=== PATIENT | male | born 1945 | race Caucasian/White ===

== ENCOUNTER 2023-09-23 17:10 | Emergency (ER) | payer OTHER, SELFPAY ==
[2023-09-23 17:21] VITALS: BP 143/95
[2023-09-23 19:32] VITALS: BP 154/100
[2023-09-23 19:36] LABS: % Basophils 0.7 % (0-2); % Eosinophils 5.8 % (0-6); % Immature Granulocytes 0.3 % (0-0.5); % Monocytes 8.2 % (1.7-9.3); Absolute Basophils 0.1 10^3/uL (0-0.2); Absolute Eosinophils 0.4 10^3/uL (0-0.7); Absolute Lymphocytes 1.6 10^3/uL (1.2-3.4); Absolute Monocytes 0.6 10^3/uL (0.1-0.6); Absolute Neutrophils 4.1 10^3/uL (1.4-6.5); Hematocrit 40.9 % (39.0-52.0); Hemoglobin 14.6 g/dL (13.0-18.0); Mean Corp Hgb Conc. 35.7 g/dL (33.0-37.0); Mean Corpuscular Hgb 31.4 pg (27.0-31.0); Mean Platelet Volume 8.6 fL (7.4-10.4); Nucleated Red Blood Cells % 0 % (-); Platelet Count 198 10^3/uL (130-400); Red Blood Cell Count 4.65 10^6/uL (4.70-6.10); Red Cell Dist. Width 12.9 % (11.5-14.5); White Blood Cell Count 6.7 10^3/uL (4.8-10.8)
[2023-09-23 19:49] LABS: ALT (SGPT) 22 U/L (0-50); AST (SGOT) 25 U/L (17-59); Albumin 3.9 g/dl (3.5-5.0); Alkaline Phosphatase 65 U/L (38-126); Blood Urea Nitrogen 19 mg/dl (9-20); Calcium 8.9 mg/dl (8.4-10.2); Carbon Dioxide 25 mmol/L (22-30); Chloride 107 mmol/L (98-107); Glucose 94 mg/dl (70-99); Potassium 4.2 mmol/L (3.5-5.1); Sodium 136 mmol/L (135-145); Total Bilirubin 0.6 mg/dl (0.2-1.3); Total Protein 6.2 g/dl (6.3-8.2); eGFR > 60.00
[2023-09-23 20:20] LABS: TSH Reflex To Free T4 1.54 uIU/ml (0.47-4.68)
--- NOTE | 2023-09-23 21:38 | ED.GENMED ---
History of Present Illness
General
Chief Complaint: Heart Rate Problem
Source: patient
Exam Limitations: none
Time Seen by Provider: 09/23/23 19:08
Nursing documentation reviewed up to this point in time: agreed with
Travel History
Have you had any contact with someone who has COVID-19?: No
Do you have any symptoms of coronavirus? Fever > 100 degrees, chills, cough, shortness of breath, sore throat, loss of taste or smell, muscle aches, or headache?: No
History of Present Illness
History of Present Illness:
77-year-old male with no significant chronic medical issues who presents to the emergency room with his for evaluation of palpitations. Patient reports that he woke up this morning with significant palpitations and he says they were consistent
essentially the entire day. He says that his heart rate was elevated between 140 and 160 for much of the day and that his pulse felt very irregular. He has seen Dr. Harris in the past for similar episode and had reassuring workup about 2 years ago
he says; he says he called the office was advised to come the emergency room. Upon arrival in the emergency room he says his symptoms have resolved and he is now comfortable without any complaints. Denies any chest pain. He denies any shortness
of breath. He denies any syncope associated with these episodes or significant dizziness. He denies any other complaints. He denies any known cardiac history.
Review of Systems
Review of Systems
All Other Systems: ROS reviewed and negative except as documented in HPI and ROS
Constitutional: Denies fever or chills
Respiratory: Denies cough or trouble breathing
Cardiac: Reports palpitations; Denies chest pain, diaphoresis or syncope
ABD/GI: Denies abdominal pain, nausea or vomiting
: Denies flank pain
Musculoskeletal: Denies neck pain or back pain
Neurological: Denies dizzy, headache, weakness or numbness
Phy Exam
Physical Exam
Physical Exam:
General: Awake, alert, oriented x3; no acute distress
Head: Normocephalic, atraumatic
Eyes: Conjunctiva normal
Throat: Airway intact, handling secretions
Neck: Trachea midline, supple without meningismus
Lungs: Clear to auscultation bilaterally, no wheezing, rales, rhonchi
Heart: Regular rate and rhythm, no murmurs, gallops, or rubs
Abd: Soft, non distended, nontender
Neuro: No gross deficits
Skin: no rash
Extremities: No edema in extremities, equal pulses in all extremities
Scores
Heart Failure Risk
Heart Failure Risk Score: Not Applicable
Heart Score for Chest Pain Patients
STEMI patient?: Not applicable
Withdrawal Assessment of Alcohol
Withdrawal Assessment Completed?: Not applicable
Course
Orders/Labs/Results
Orders:
Orders
09/23/23 17:13
Electrocardiogram (*1) Urgent
Reason for Study: Palpitations
EKG- Treatment ONCE
09/23/23 19:32
Complete Blood Count/With Diff Urgent
Comprehensive Metabolic Panel Urgent
TSH Reflex To Free T4 Urgent
09/23/23 20:43
Add On- LAB Urgent
Tests Added?: troponin
09/23/23 20:51
Troponin I Urgent
Abnormal Lab Results
09/23/23
19:32
RBC 4.65 L 10^6/uL
(4.70-6.10)
MCH 31.4 H pg
(27.0-31.0)
Total Protein 6.2 L g/dl
(6.3-8.2)
09/23/23 19:32
09/23/23 19:32
Vital Signs
Initial and Last Documented VS:
Initial Vital Signs
Temp Pulse Resp BP Pulse Ox
36.6 C 85 16 143/95 98
09/23/23 17:21 09/23/23 17:21 09/23/23 17:21 09/23/23 17:21 09/23/23 17:21
Last Documented Vital Signs
Temp Pulse Resp BP Pulse Ox
36.6 C 73 19 154/100 98
09/23/23 17:21 09/23/23 21:00 09/23/23 21:00 09/23/23 19:32 09/23/23 21:00
MDM/Problems Addressed
Differential Diagnosis Includes:
Dysrhythmia including atrial fibrillation, atrial flutter, SVT; hyperthyroidism; anxiety
MDM/Problems Addressed:
77-year-old male presents for evaluation of palpitations and tachycardia throughout the day today. Symptoms have resolved in the emergency room. He has no complaints at present. Vital signs significant for hypertension but otherwise normal
including heart rate in the 80s. Physical exam as above. EKG shows a normal sinus rhythm with no concerning changes; no Brugada, no delta wave, normal QTc. Plan to place an IV check basic labs. Check thyroid studies. Reassess after the above.
Labs reviewed and CBC and CMP are unremarkable. Thyroid studies normal. Troponin was negative send in triage�patient denied chest pain. 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 Patient feels very comfortable with this plan and in fact prefers discharge. We spoke about return precautions in detail (including returning immediately for EKG should he notice tachycardia again) and all questions were answered.
*Pulse Oximetry
Patient hypoxic: no
*EKG
Interpreted by ED Provider?: Yes
Heart Rate: 80
Rate: normal
Rhythm: sinus
Chariton: normal axis
Interval: normal interval
QRS Pattern: normal QRS
Ischemia: no ischemia
*Critical Care Note
Total Time (30-74mins, 75-104mins- exclusive of procedures): Not Applicable
Data Reviewed
Review of Other/Old Records Reveals: Labs and Records
Source: patient and spouse
Patient Management
Discussion with other providers: Varnisher (Discussed with cardiology)
Escalation/DeEscalation of care consider admission/obs:
Consider observation on telemetry overnight but after discussion with patient and cardiology, using shared decision-making with patient plan for discharge with strong outpatient follow-up plan in place
ED Attending Note
-
Portions of this chart may have been created with voice recognition software.� Occasional wrong word or��sound alike� substitutions may have occurred due to the inherent limitations of voice recognition software.
Discharge Plan
Departure
Patient Disposition: Home (Routine Discharge)
Date of Disposition: 09/23/23
Time of Disposition: 21:30
Patient with high blood pressure during this ER visit?: Yes
Discharge Problem:
Heart palpitations, Tachycardia
Instructions: Palpitations (DC)
Prescriptions:
No Action
ibuprofen [Advil] 200 MG tablet
200 mg PO DAILY
Unknown Prostate Med
DAILY
Patient Comments:
unknown name of med or dose
Referrals:
Karlene Clark MD [Family Provider] -
Bart Harris, [Active] - Call in 1-3 days for appt
Activity Restrictions/Additional Instructions:
Thank you for visiting the Emergency Department at [facility].
1. Please schedule a follow up appointment as directed. Call first thing tomorrow morning to make an appointment.
2. If indicated, please take your medications as instructed and indicated on discharge paperwork.
3. If any of your symptoms do not improve, or persist, or become more severe within 6-12 hours, please return to the emergency department for further care.
4. Please return to the emergency department if you develop a headache, neck pain/stiffness, fever greater than 100.4F, chest pain, shortness of breath, persistent nausea, vomiting, slurred speech, difficulty walking, numbness/tingling, weakness,
signs of infection or any other symptoms that are worrisome to you.
Please call [phone] if you have any questions.
Interventions
Interventions:
*Risk Screen - Suicide Last Done: 09/23/23 20:05
*General Assessment Last Done: 09/23/23 21:38
*Neglect/Abuse Screening Last Done: 09/23/23 20:05
ED- Fall Risk Assessment Last Done: 09/23/23 19:46
*ED COVID-19 Vaccine History Last Done: 09/23/23 17:21
*Nursing Disposition Last Done: 09/23/23 21:38
ED- Cardiac Assessment Last Done: 09/23/23 19:46
ED- Pulmonary Assessment Last Done: 09/23/23 19:46
Discharge Date and Time
Print Language: SINHALA
== END 2023-09-23 21:40 | disposition home or self-care (01) ==
LOC: EMR 17:10
PROVIDERS: EMERGENCY PHYSICIAN Emergency Medicine; FAMILY PHYSICIAN Internal Medicine
DX: R00.2 Palpitations (principal); R00.0 Tachycardia, unspecified; I10 Essential (primary) hypertension
CPT/HCPCS: 99284; 80053; 84443; 84484; 85025; 93005

== ENCOUNTER 2023-11-10 22:13 | Emergency (ER) | payer OTHER, SELFPAY ==
[2023-11-10 22:16] VITALS: BP 155/111
--- NOTE | 2023-11-10 22:24 | ED.GENMED ---
History of Present Illness
General
Chief Complaint: Heart Rate Problem
Source: patient
Exam Limitations: none
Time Seen by Provider: 11/10/23 22:23
Nursing documentation reviewed up to this point in time: agreed with
Travel History
Have you had any contact with someone who has COVID-19?: No
Do you have any symptoms of coronavirus? Fever > 100 degrees, chills, cough, shortness of breath, sore throat, loss of taste or smell, muscle aches, or headache?: No
History of Present Illness
History of Present Illness:
Pleasant 77-year-old male with a known history of atrial fibrillation on Eliquis presents with palpitations this evening. Patient states that at 920 he felt palpitations and thought he was in A-fib. He used his Kardia device 4 times since having
the feeling and came into the emergency department. Patient sees Dr. Harris and had an appointment 10 days ago. He was started on metoprolol but had to reduce the dose due to unforeseen complications. Patient is on Eliquis and has not missed a
dose. Patient denies any chest pain or shortness of breath.
Review of Systems
Review of Systems
Allergies reviewed?: Yes
Other source history: family
All Other Systems: ROS reviewed and negative except as documented in HPI and ROS
Constitutional: Reports no symptoms
EENT: Reports no symptoms
Respiratory: Reports no symptoms
Cardiac: Reports palpitations; Denies chest pain, diaphoresis or syncope
ABD/GI: Reports no symptoms
: Reports no symptoms
Musculoskeletal: Reports no symptoms
Skin: Reports no symptoms
Neurological: Reports no symptoms
Endocrine: Reports no symptoms
Hematologic/Lymphatic: Reports no symptoms
Psychiatric: Reports no symptoms
Phy Exam
General Physical Exam
General Presentation: well appearing and no apparent distress
General Skin: warm and dry
General Habitus: normal
General Mental: alert
General Hydration: appears well hydrated
ENT Exam
ENT Exam: EOMI, pharynx normal, neck supple and normocephalic
Eye Exam
Eye Exam: PERRL, cornea clear and conjunctiva normal
Cardiovascular Exam
Cardiovascular Exam: regular rate/rhythm, no edema, no murmur and normal peripheral pulses
Pulmonary Exam
Pulmonary Exam: lungs clear, no respiratory distress, no rales, no crackles, no rhonchi, no stridor, no wheezing and no cough
Gastrointestinal Exam
Gastrointestinal Exam: normal bowel sounds, non tender, soft, no organomegaly, no pulsatile mass and non distended
Neurological Exam
Neurological Exam: alert, oriented x3, no motor deficits and speech normal
Musculoskeletal Exam
Musculoskeletal Exam: full ROM and no edema
Skin Exam
Skin Exam: normal color, warm/dry, no rash and no petechia
Psychiatric Exam
Psychiatric Exam: normal mood/affect
Course
Orders/Labs/Results
Orders:
Orders
11/10/23 22:14
Electrocardiogram (*1) Urgent
Reason for Study: Bradycardia / Tachycardia
EKG- Treatment ONCE
11/10/23 22:33
Cardiac Monitoring- Treatment ONCE
11/10/23 22:35
Complete Blood Count/With Diff Urgent
Comprehensive Metabolic Panel Urgent
Magnesium Urgent
PTT Urgent
Prothrombin Time Urgent
Troponin I Urgent
Abnormal Lab Results
11/10/23
22:35
RBC 4.57 L 10^6/uL
(4.70-6.10)
MCH 31.5 H pg
(27.0-31.0)
BUN 23 H mg/dl
(9-20)
Glucose 100 H mg/dl
(70-99)
11/10/23 22:35
11/10/23 22:35
Vital Signs
Initial and Last Documented VS:
Initial Vital Signs
Temp Pulse Resp BP Pulse Ox
97.8 F 88 24 155/111 98
11/10/23 22:16 11/10/23 22:16 11/10/23 22:16 11/10/23 22:16 11/10/23 22:16
Last Documented Vital Signs
Temp Pulse Resp BP Pulse Ox
97.8 F 86 17 139/87 93
11/10/23 22:16 11/10/23 23:30 11/10/23 23:30 11/10/23 23:00 11/10/23 23:30
*Critical Care Note
Total Time (30-74mins, 75-104mins- exclusive of procedures): Not Applicable
Update Note
Update Note:
Patient has meeting with Dr. Harris and Dr. Leonard scheduled in the near future to discuss an ablation.
ED Attending Note
-
Portions of this chart may have been created with voice recognition software.� Occasional wrong word or��sound alike� substitutions may have occurred due to the inherent limitations of voice recognition software.
Discharge Plan
Departure
Patient Disposition: Home (Routine Discharge)
Date of Disposition: 11/10/23
Time of Disposition: 23:33
Patient with high blood pressure during this ER visit?: Yes
Condition: Good
Discharge Problem:
Palpitations
Instructions: Palpitations (DC), BLOOD PRESSURE
Prescriptions:
No Action
ibuprofen [Advil] 200 MG tablet
200 mg PO DAILY
Unknown Prostate Med
DAILY
Patient Comments:
unknown name of med or dose
Referrals:
Karlene Clark MD [Family Provider] -
Bart Harirs DO [Active] - Keep scheduled appt
Activity Restrictions/Additional Instructions:
It was a pleasure meeting you and taking part in your care. We hope for your continued healing and wellness.
Please read discharge instructions in their entirety. However, they are for general education and may not describe your exact diagnosis at discharge. Information on your ER visit and medical conditions were discussed with you along with appropriate
follow up information...
If indicated, please take your medications as instructed and indicated on discharge paperwork.
Please schedule a follow up appointment as directed. Call to schedule an appointment
Please return to the emergency department with ANY change in, persisting, or worsening of symptoms. If any of your symptoms do not improve, or persist, or become more severe within 6-12 hours, please return to the emergency department for further
care.
Please return to the emergency department if you develop a headache, neck pain/stiffness, fever greater than 100.4F, chest pain, shortness of breath, persistent nausea, vomiting, slurred speech, difficulty walking, numbness/tingling, weakness, signs
of infection or any other symptoms that are worrisome to you.
If you have any questions or concerns please do not hesitate to call the Hospital at or E-mail me directly at [email or web address]
Interventions
Interventions:
*Risk Screen - Suicide Last Done: 11/10/23 22:16
*General Assessment Last Done: 11/10/23 22:25
*Neglect/Abuse Screening Last Done: 11/10/23 22:16
ED- Fall Risk Assessment Last Done: 11/10/23 22:29
*ED COVID-19 Vaccine History Last Done: 11/10/23 22:25
*Nursing Disposition Last Done: 11/10/23 23:45
ED- Cardiac Assessment Last Done: 11/10/23 23:45
ED- Pulmonary Assessment Last Done: 11/10/23 23:35
Discharge Date and Time
Print Language: GEORGIAN
[2023-11-10 22:25] VITALS: BMI 31.8
[2023-11-10 22:40] LABS: % Basophils 0.8 % (0-2); % Eosinophils 5.9 % (0-6); % Immature Granulocytes 0.4 % (0-0.5); % Lymphocytes 24.3 % (20.5-51.1); % Monocytes 8.6 % (1.7-9.3); Absolute Basophils 0.1 10^3/uL (0-0.2); Absolute Eosinophils 0.4 10^3/uL (0-0.7); Absolute Lymphocytes 1.8 10^3/uL (1.2-3.4); Absolute Monocytes 0.6 10^3/uL (0.1-0.6); Absolute Neutrophils 4.4 10^3/uL (1.4-6.5); Hematocrit 39.5 % (39.0-52.0); Hemoglobin 14.4 g/dL (13.0-18.0); Mean Corp Hgb Conc. 36.5 g/dL (33.0-37.0); Mean Corpuscular Hgb 31.5 pg (27.0-31.0); Mean Corpuscular Volume 86.4 fL (80.0-94.0); Mean Platelet Volume 8.5 fL (7.4-10.4); Nucleated Red Blood Cells % 0 % (-); Platelet Count 200 10^3/uL (130-400); Red Blood Cell Count 4.57 10^6/uL (4.70-6.10); Red Cell Dist. Width 12.7 % (11.5-14.5); White Blood Cell Count 7.3 10^3/uL (4.8-10.8)
[2023-11-10 22:50] LABS: INR 1.15; PT 14.5 Sec (11.4-14.6)
[2023-11-10 22:51] LABS: APTT 27.3 Sec (23.4-35.0)
[2023-11-10 22:54] LABS: ALT (SGPT) 24 U/L (0-50); AST (SGOT) 31 U/L (17-59); Albumin 4.5 g/dl (3.5-5.0); Alkaline Phosphatase 64 U/L (38-126); Blood Urea Nitrogen 23 mg/dl (9-20); Calcium 9.7 mg/dl (8.4-10.2); Carbon Dioxide 22 mmol/L (22-30); Chloride 107 mmol/L (98-107); Estimated Creatinine Clearance 72 ml/min; Glucose 100 mg/dl (70-99); Magnesium 1.9 mg/dl (1.6-2.3); Sodium 142 mmol/L (135-145); Total Bilirubin 0.5 mg/dl (0.2-1.3); Total Protein 6.9 g/dl (6.3-8.2); eGFR > 60.00
[2023-11-10 23:00] VITALS: BP 139/87
[2023-11-10 23:14] LABS: Troponin I < 0.012 ng/ml
== END 2023-11-10 23:45 | disposition home or self-care (01) ==
LOC: EMR 22:13
PROVIDERS: EMERGENCY PHYSICIAN Student in an Organized Health Care Education/Training Program; FAMILY PHYSICIAN Internal Medicine
DX: R00.2 Palpitations (principal); I48.91 Unspecified atrial fibrillation; Z79.01 Long term (current) use of anticoagulants
CPT/HCPCS: 99283; 80053; 83735; 84484; 85025; 85610; 85730; 93005

== ENCOUNTER → 2023-11-12 13:50 | Outpatient (REF) | payer OTHER, SELFPAY | LOC: HWRCS 13:50 | PROVIDERS: ATTENDING PHYSICIAN Nuclear Medicine Nuclear Cardiology; FAMILY PHYSICIAN Internal Medicine | DX: R00.2 Palpitations (principal); I08.0 Rheumatic disorders of both mitral and aortic valves | CPT/HCPCS: 93306 ==

== ENCOUNTER 2024-01-06 05:51 | Day surgery (SDC) | payer OTHER, SELFPAY ==
[2023-12-25 09:57] VITALS: BMI 29.5
[2023-12-25 10:27] LABS: INR 1.24; PT 15.4 Sec (11.4-14.6)
[2023-12-25 10:29] LABS: % Basophils 1.1 % (0-2); % Eosinophils 5.1 % (0-6); % Immature Granulocytes 0.2 % (0-0.5); % Lymphocytes 25.7 % (20.5-51.1); % Monocytes 8.8 % (1.7-9.3); % Neutrophils 59.1 % (42.2-75.2); Absolute Basophils 0.1 10^3/uL (0-0.2); Absolute Eosinophils 0.2 10^3/uL (0-0.7); Absolute Lymphocytes 1.2 10^3/uL (1.2-3.4); Absolute Monocytes 0.4 10^3/uL (0.1-0.6); Absolute Neutrophils 2.7 10^3/uL (1.4-6.5); Hematocrit 39.8 % (39.0-52.0); Mean Corp Hgb Conc. 35.2 g/dL (33.0-37.0); Mean Corpuscular Hgb 31.9 pg (27.0-31.0); Mean Corpuscular Volume 90.7 fL (80.0-94.0); Mean Platelet Volume 8.8 fL (7.4-10.4); Nucleated Red Blood Cells % 0 % (-); Platelet Count 196 10^3/uL (130-400); Red Blood Cell Count 4.39 10^6/uL (4.70-6.10); Red Cell Dist. Width 12.5 % (11.5-14.5); White Blood Cell Count 4.5 10^3/uL (4.8-10.8)
[2023-12-25 10:42] LABS: ALT (SGPT) 21 U/L (0-50); AST (SGOT) 26 U/L (17-59); Albumin 4.3 g/dl (3.5-5.0); Alkaline Phosphatase 57 U/L (38-126); Blood Urea Nitrogen 21 mg/dl (9-20); Calcium 9.3 mg/dl (8.4-10.2); Carbon Dioxide 26 mmol/L (22-30); Chloride 109 mmol/L (98-107); Estimated Creatinine Clearance 60 ml/min; Glucose 97 mg/dl (70-99); Magnesium 1.9 mg/dl (1.6-2.3); Potassium 4.4 mmol/L (3.5-5.1); Sodium 141 mmol/L (135-145); Total Bilirubin 0.5 mg/dl (0.2-1.3); Total Protein 6.4 g/dl (6.3-8.2); eGFR > 60.00
[2024-01-06] VITALS (11 sets, daily range): BP systolic 108–145; BP diastolic 67–98
[2024-01-06] MEDS: FLOMAX 0.4 MG PO (07:20)
[2024-01-06 08:49] LABS: ACT-LR - POC 306 Seconds (116-155)
[2024-01-06 09:08] LABS: ACT-LR - POC 377 Seconds (116-155)
--- NOTE | 2024-01-06 09:40 | ITS.CL.ABL ---
Psychologist Social - Ablation
Ablation
Procedure Report:
ELECTROPHYSIOLOGIC STUDY AND POSSIBLE ABLATION
DATE: January 06, 2024
Primary Care Provider: Dr Darlene Stevens
Primary Distance Learning Technician: Dr Bart Harris
INDICATION:
Symptomatic Atrial Fibrillation.
Paroxysmal
HISTORY: See H and P.
Symptomatic AF, poorly controlled with attempted medical therapy
HAS-BLED: 1
Age
CHADSVASc: 2
Age
PRESENTING RHYTHM: SR
HISTORY: See H and P.
Symptomatic AF, poorly controlled with attempted medical therapy.
ANTICOAGULATION: Apixaban
'TIME-OUT': called and confirmed.
SEDATION/ANESTHESIA: provided via the anesthesia department using general anesthesia.
PROCEDURE:
Ultrasound Guidance performed by az was utilized for femoral venous Vascular Access b/l.
A decapolar CS catheter was placed within the CS for mapping and pacing.
The intracardiac ultrasound catheter was positioned in the RA for continuous intracardiac ultrasound imaging.
Heparin bolus and infusion to target ACT at 300 -350 seconds was administered. Transseptal puncture was performed. This entailed advancing a sheath with dilator into the superior vena cava and withdrawing both (monitoring intracardiac ultrasound,
fluoroscopy and tip pressure) with the tip oriented toward the atrial septum. The fossa ovalis was engaged (indicated by sudden displacement of the sheath tip as well as tenting of the fossa seen on intracardiac ultrasound).
AcPreclick transseptal system was used. Left atrial catheter position was confirmed by echocardiographic imaging, pressure monitoring (LA mean pressure 6 mm Hg) and fluoroscopy. The sheath was advanced over the dilator and positioned in the left
atrium.
The multipolar mapping catheter was initially positioned through the transseptal sheath for high density mapping.
Geometry and voltage mapping was performed using the Dejamor multipolar grid catheter. Navex was utilized for three-dimensional electroanatomical mapping.
A 3-D map was created using Navex. A 3-D reconstructed CT image was compared to the 3-D Navex map to assist in anatomic evaluation, mapping and ablation.
The [employer] Pulse Select PFA catheter and system was used for cardiac ablation. Catheter positioning was guided and confirmed using both I.C.E. and fluoroscopy.
PV isolation approach was used to electrically isolate each PV ostia.
Remapping with the Dejamor multipolar grid catheter found that all PVPs were eliminated at each vein demonstrating entrance block. Also pacing from the multipolar mapping catheter around the the circumference of the ostia was performed at 10 ma and
2.0 msec output to assess for exit block. This demonstrated electrical isolation at each of the pulmonary vein ostia ( LSPV, LIPV, RSPV, RIPV).
Additional energy applications/additional ablation set was required to accomplish wide area circumferential ablation around each of the pulmonary vein sets and to isolate the posterior wall of the left atrium..
At completion of ablation, mapping with the multipolar mapping catheter Garcia Grid was repeated at each PV ostia to assess for any 're connect', none was observed. Additionally, there is entrance and exit block of the posterior wall of the left
atrium.
I.C.E. :
Pre-Ablation Post-Ablation
LVEF: 55 % 55 %
WMA: none none
Pericardial effusion: none none
COMPLICATIONS:
None
SUMMARY:
- Mapping and ablation to isolate the PVs
- Additional AF ablation set after PVI.
- 3-D Electroanatomical Mapping
- Intracardiac Ultrasound
Post ablation, I discussed today's findings and results with the patient's , Dina Craig.
RECOMMENDATIONS:
- Observe in monitored bed.
- Maintain oral anticoagulation.
- Office visit withDr Harris in 3 months.
Copy to:
Dr Darlene Stevens
Dr Bart Hraris
[2024-01-06] MEDS: TYLENOL 650 MG PO (12:05)
--- NOTE | 2024-01-06 14:15 | W.PN.UPDATE ---
Update Note
Progress Note Update
78 yo WM s/p PVI (Same day). He feels good, no cp, sob, she diet, voiding, amb w/o dizziness. EKG SR, fem site c/d/i soft. He will continue OAC Eliquis dose at 4pm at home. He will continue metoprolol. Activity restrictions reviewed. He will f/u
Kimberly in 2 mo. He is for d/c home after 230p.
SUMMARY:
- Mapping and ablation to isolate the PVs
- Additional AF ablation set after PVI.
- 3-D Electroanatomical Mapping
- Intracardiac Ultrasound
Post ablation, I discussed today's findings and results with the patient's , Dina Craig.
RECOMMENDATIONS:
- Observe in monitored bed.
- Maintain oral anticoagulation.
- Office visit withDr Harris in 3 months.
Copy to:
Dr Darlene Stevens
Dr Bart Harris
== END 2024-01-06 14:45 | disposition home or self-care (01) ==
LOC: CATH 05:51
PROVIDERS: ATTENDING PHYSICIAN Internal Medicine Cardiovascular Disease; FAMILY PHYSICIAN Emergency Medicine; OTHER PHYSICIAN Nuclear Medicine Nuclear Cardiology
DX: I48.0 Paroxysmal atrial fibrillation (principal); N40.0 Benign prostatic hyperplasia without lower urinary tract symptoms; B19.10 Unspecified viral hepatitis B without hepatic coma; Z87.891 Personal history of nicotine dependence; Z79.01 Long term (current) use of anticoagulants
CPT/HCPCS: C1732; C1894; C1733; C1769; C1730; C1892; C1766; 36415; 75572; 76937; 80053; 83735; 85025; 85347; 85610; 86850; 86900; 86901; 93005; 93656; 93657; Q9967

== ENCOUNTER 2024-01-08 20:36 | Inpatient (IN) | payer OTHER, SELFPAY ==
[2024-01-08 17:13] VITALS: BP 133/83
--- NOTE | 2024-01-08 17:36 | ED.GENMED ---
History of Present Illness
General
Chief Complaint: Catheter/Tube Problem
Time Seen by Provider: 01/08/24 17:36
History of Present Illness
History of Present Illness:
HPI: The patient presents with gross hematuria. This started earlier today. 2 days ago he had A-fib ablation with Dr. Leonard. Yesterday he went into urinary retention and this morning had 1.5 L drained with Chase catheter. He has been on
Eliquis. The gross hematuria started a few hours ago. He spoke to cardiology and urology who recommended he comes in here for further evaluation. He was also concerned because he had drainage of bloody urine around the Chase catheter.
EXAM:
GENERAL: Well appearing in no distress
HEENT: Moist oral mucosa
CARDIOVASCULAR: No murmurs, normal heart rate, regular rhythm, No chest wall tenderness
PULMONARY: No respiratory distress, breath sounds are clear and equal
ABDOMEN: Soft with no peritoneal signs, no tenderness, no bladder distention
: There is red Adams-Aid appearance of the urine in the leg bag, there is no active drainage around the catheter.
NEUROLOGIC: Excellent strength all extremities, no coordination deficits
PSYCHIATRIC: Appropriate mental status, normal insight and judgement
EXTREMITIES: Nontender, no edema, moves all extremities equally
SKIN: No rash, no lesions
TIME OF INITIAL ENCOUNTER: 5:50 PM
NUMBER AND COMPLEXITY OF PROBLEMS ADDRESSED AT THE ENCOUNTER
� Chronic conditions affecting care: A-fib on Eliquis
� Acute Exacerbation and/or Progression of Chronic Illness: This is an acute problem but has had postop retention in the past
� Differential Diagnosis includes: Postop urinary retention, gross hematuria, hemorrhagic cystitis, coagulopathy from Eliquis
AMOUNT AND/OR COMPLEXITY OF DATA TO BE REVIEWED AND ANALYZED
� I performed an independent evaluation of and my interpretation is:
EKG:
CT:
X-rays:
Laboratory Studies: White count 7.9, hemoglobin 12.4, renal function normal
Other:
� Review of other/old records: I reviewed the notes from Dr. Leonard from 01/06/2024
� Clinical information was obtained by an independent historian: Spoke to at bedside
� Prescriptions/Medications Considered but not given:
� Further testing considered but not performed:
RISK OF COMPLICATIONS AND/OR MORBIDITY OR MORTALITY OF PATIENT MANAGEMENT
� Social determinants of health affecting care: Lives at home
� Discussion with other providers: Discussed case regarding Eliquis use with Dr. Ashtonology is okay with holding a dose but would like to have him resume the Eliquis as soon as possible such as tomorrow morning. I then
spoke to Dr. Santos feels he would be most safe to keep the patient in the hospital on CBI and reassess him in the morning. He recommends to hold any anticoagulation at this time. Discussed case with Dr. Nicole for admission.
� Escalation of care including admission/observation vs risk of discharge considered: Based on the above, we will plan keeping him here in the hospital.
Phy Exam
Physical Exam
Physical Exam:
See HPI
Course
Orders/Labs/Results
Orders:
Orders
01/08/24 18:51
CBI- Treatment PRN
Solution: saline
Irrigate to Clear?: Yes
01/08/24 18:52
Chase Placement- Treatment ONCE
Reason for insertion: Acute Retention
01/08/24 19:00
Basic Metabolic Panel Urgent
Complete Blood Count/With Diff Urgent
Abnormal Lab Results
01/08/24
19:00
RBC 3.89 L 10^6/uL
(4.70-6.10)
Hgb 12.4 L g/dL
(13.0-18.0)
Hct 34.4 L %
(39.0-52.0)
MCH 31.9 H pg
(27.0-31.0)
Absolute Lymphs (auto) 0.9 L 10^3/uL
(1.2-3.4)
Absolute Monos (auto) 0.7 H 10^3/uL
(0.1-0.6)
Neutrophils % 76.7 H %
(42.2-75.2)
Lymphocytes % 11.6 L %
(20.5-51.1)
Glucose 107 H mg/dl
(70-99)
01/08/24 19:00
01/08/24 19:00
Vital Signs
Initial and Last Documented VS:
Initial Vital Signs
Temp Pulse Resp BP Pulse Ox
98.7 F 85 20 133/83 96
01/08/24 17:13 01/08/24 17:13 01/08/24 17:13 01/08/24 17:13 01/08/24 17:13
Last Documented Vital Signs
Temp Pulse Resp BP Pulse Ox
98.7 F 69 16 152/90 97
01/08/24 17:13 01/08/24 19:01 01/08/24 19:01 01/08/24 19:01 01/08/24 19:01
*Critical Care Note
Total Time (30-74mins, 75-104mins- exclusive of procedures): Not Applicable
ED Attending Note
-
Portions of this chart may have been created with voice recognition software.� Occasional wrong word or��sound alike� substitutions may have occurred due to the inherent limitations of voice recognition software.
Discharge Plan
Departure
Patient Disposition: Admit
Date of Disposition: 01/08/24
Time of Disposition: 19:27
Presentation/result/management discussed w/ accepting MD/DO: Hospitalist
Discharge Problem:
Gross hematuria
Prescriptions:
No Action
ibuprofen [Advil] 200 MG tablet
200 mg PO DAILY
Unknown Prostate Med
DAILY
Patient Comments:
unknown name of med or dose
tamsulosin 0.4 mg Capsule
0.4 mg PO DAILY
metoprolol succinate 25 mg Tablet Extended Release 24 Hr
25 mg PO BID
cholecalciferol (vitamin D3) [Vitamin D3] 125 mcg (5,000 unit) Tablet
125 mcg DAILY
Eliquis 5 mg Tablet
5 mg DAILY
Glucosamine Chondroitin 550-30-1 mg Capsule
500 cap PO DAILY
Referrals:
Darlene Wagner MD [Family Provider] -
Interventions
Interventions:
*Risk Screen - Suicide Last Done: 01/08/24 17:13
*General Assessment Last Done: 01/08/24 17:13
*Neglect/Abuse Screening Last Done: 01/08/24 17:13
*ED COVID-19 Vaccine History Last Done: 01/08/24 17:55
HA-Nkuika-Zphcprqljx Assessment Last Done: 01/08/24 18:04
ED-Male Genitourinary Assessment Last Done: 01/08/24 18:04
Discharge Date and Time
Print Language: ALGERIAN
[2024-01-08 19:01] VITALS: BP 152/90
[2024-01-08 19:08] LABS: % Basophils 0.4 % (0-2); % Immature Granulocytes 0.3 % (0-0.5); % Lymphocytes 11.6 % (20.5-51.1); % Neutrophils 76.7 % (42.2-75.2); Absolute Eosinophils 0.2 10^3/uL (0-0.7); Absolute Lymphocytes 0.9 10^3/uL (1.2-3.4); Absolute Monocytes 0.7 10^3/uL (0.1-0.6); Hematocrit 34.4 % (39.0-52.0); Hemoglobin 12.4 g/dL (13.0-18.0); Mean Corpuscular Hgb 31.9 pg (27.0-31.0); Mean Corpuscular Volume 88.4 fL (80.0-94.0); Mean Platelet Volume 8.9 fL (7.4-10.4); Nucleated Red Blood Cells % 0 % (-); Platelet Count 183 10^3/uL (130-400); Red Blood Cell Count 3.89 10^6/uL (4.70-6.10); Red Cell Dist. Width 12.6 % (11.5-14.5); White Blood Cell Count 7.9 10^3/uL (4.8-10.8)
[2024-01-08 19:27] LABS: Blood Urea Nitrogen 18 mg/dl (9-20); Calcium 9.1 mg/dl (8.4-10.2); Carbon Dioxide 24 mmol/L (22-30); Chloride 106 mmol/L (98-107); Glucose 107 mg/dl (70-99); Potassium 4.1 mmol/L (3.5-5.1); Sodium 136 mmol/L (135-145); eGFR > 60.00
--- NOTE | 2024-01-08 19:40 | HPS.HSE ---
Family Physician
-
Family Physician: Darlene Wagner MD
Chief Complaint
-
hematuria
History of Present Illness
78 year old with PMH for atrial fib s/p cardiac ablation two days ago on eliquis, BPH presents with gross hematuria. he was noted to have urinary retention yesterday. Chase placed today at urology office. he started bloody urine by the time he got
home. patient denied any abdominal pain. denied n,v,d. denied fever, chills, chest pain, sob. denied ALVA, dizzy or syncopal episode.
patient was started on CBI. admitting for further management.
Medical History
Past Medical History
Past Medical History: Reports Other
Additional Past Medical History:
BPH
Paroxysmal A-fib
Hepatitis B
Insomnia
Past Surgical History: Reports Other
Additional Past Surgical History:
Bilateral cataract extraction
Right Achilles tendon repair
Right rotator cuff repair
Right clavicle ORIF sinus surgery
Social History
Tobacco: Former Smoker
Alcohol: None
Drug: None
Personal:
Living: With Family
Family History
Family History: Not pertinent
Allergies / Home Medications
Allergies reflects when Allergies were last updated in [employer].
Home Medications with original date entered in [employer]
Allergy/Medication List:
Allergies
Allergy/AdvReac Type Severity Reaction Status Date / Time
No Known Allergies Allergy Verified 01/08/24 17:20
Home Medications
apixaban 5 mg tablet (Eliquis) 5 mg DAILY Blood Clot Prevention/Tx 01/06/24
glucosamine sulf dipot chlr,msm,chond 550 mg-C 30 mg-jose de jesus 1 mg capsule (Glucosamine Chondroitin) 500 cap PO DAILY Supplement 01/06/24
metoprolol succinate 25 mg tablet,extended release 24 hr 25 mg PO BID Blood Pressure 01/06/24
tamsulosin 0.4 mg capsule 0.4 mg PO DAILY Urinary Issue 01/06/24
diphenhydramine 25 mg-acetaminophen 500 mg tablet (Tylenol PM Extra Strength) 1 tab PO HS PRN sleep 01/08/24
multivitamin 1 tab PO DAILY Supplement 01/08/24
Review of Systems
-
Constitutional: Reports No Symptoms
EENT: Reports No Symptoms
Respiratory: Reports No Symptoms
Cardiac: Reports No Symptoms
Abdomen/GI: Reports No Symptoms
: Reports Bleeding
Musculoskeletal: Reports No Symptoms
Skin: Reports No Symptoms
Neurological: Reports No Symptoms
Endocrine: Reports No Symptoms
Hematologic/Lymphatic: Reports No Symptoms
Psych: Reports No Symptoms
Physical Exam
Vital Signs
Vital Signs
Temp Pulse Resp BP Pulse Ox
98.7 F 69 16 152/90 97
01/08/24 17:13 01/08/24 19:01 01/08/24 19:01 01/08/24 19:01 01/08/24 19:01
Physical Exam
General: Well Developed, Well Nourished and No Apparent Distress
HEENT: NormoCephalic, Moist mucous membranes and Atraumatic
Respiratory: Clear
Cardiac: S1/S2 and Regular Rhythm; No Murmur or Rub
GI: Soft, Non Tender, Non Distended and Normal Bowel Sounds; No Organomegaly
Rectal: Deferred by Provider
Genito-urinary: Continuous Bladder Irrigation
Musculoskeletal: No Clubbing, No Cyanosis and No Edema
Skin: No Rash
Neuro: AO x 3 and Nonfocal/grossly intact
Psych: Calm
Laboratory Results
-
01/08/24 19:00
01/08/24 19:00
Data Reviewed
-
Lab Data: Labs Reviewed by me
Impression/Plan
-
# Acute urinary retention/gross hematuria
#hxt of BPH
-Chase in place
-Irrigated in ER
-Continuous bladder irrigation in place
-Urology consulted
-Hemoglobin stable at 12.4
Continue to monitor hemoglobin
-flomax continued
# Atrial Fib
-Status cardiac ablation
-Hold Eliquis
-metoprolol continued
#DVT prophylaxis
-scd
#CODE status
-full code
--- NOTE | 2024-01-08 19:48 | CON.MD ---
Consultation - Medical
-
see dictated note
pt with long hx of BPH and prior hx of retention after gen anesthesia
followed by dr wooten
on flomax
had cardiac ablation on thursday- on eliquis
seen on our office this am with AUR- 1.5 liters drained from bladder
shortly thereafter pt developed gross hematuria - likely secondary to bladder decompression/bph with jean baptiste
in ER hct down from 39-to 34
[address] way jean baptiste placed- urine light giron on moderate drip cbi
plan
cbi
jean baptiste/flomax/proscar
discussed with cardiology- will hold tonight's dose of eliquis and re-eval in am
--- NOTE | 2024-01-08 20:32 | W.PN.UPDATE ---
Addendum entered and electronically signed by Froy Nicole MD 01/08/24 20:41:
Seen by [facility] card a today per patient
- Consult [facility] card
Original Note:
Update Note
Progress Note Update
This note serves as an addendum to the H&P by licensed journeyman electrician THAO Carolee DARVIN, Mahogany WEEKS, Aziza SHARPE
HPI
78F PMH for AF s/p cardiac ablation two days ago on eliquis, BPH pw gross hematuria. he was noted to have urinary retention yesterday. Chase placed today at urology office. he started bloody urine by the time he got home.
Patient was started on CBI. admitting for further management.
ROS:
Denied any abdominal pain. denied n,v,d. denied fever, chills,
PMHX
BPH
Paroxysmal A-fib
Hepatitis B
Insomnia
Reviewed VS:
Vital Signs
Temp Pulse Resp BP Pulse Ox
98.7 F 64 16 152/90 97
01/08/24 17:13 01/08/24 20:15 01/08/24 20:15 01/08/24 19:01 01/08/24 20:15
PE
General: No Apparent Distress
HEENT: Moist mucous membranes
Respiratory: Clear
Cardiac: S1/S2 and Regular Rhythm
GI: Soft, Non Tender, Non Distended and Normal Bowel Sounds;
Rectal: Deferred by Provider
Genito-urinary: on CBI with pink urine
Musculoskeletal: No Edema
Skin: No Rash
Neuro: AO x 3 and Nonfocal/grossly intact
Psych: Calm
Data:
nl WCC
Hgb 12.4
nl Cr
nl eGFR
ASSESSMENT & PLAN
Acute urinary retention with gross hematuria
HX BPH
- Chase in place s/p Irrigated in ER
- cont. CBI with clearing urine
- cont. Flomax
- Urology consulted
HX AF
-Status cardiac ablation
- Hold Eliquis
- metoprolol continued
DVT Px: SCD
Code: Full code
TLM
--- NOTE | 2024-01-08 20:53 | CON.CAR ---
Consultation
Consultation Request
Date/Time Consultation Requested: 01/08/24 7:00
Date/Time Consultation Performed: 01/08/24 8:30pm
Requesting Provider: Dr Joseph
Performing Provider: Dr Chakraborty
Reason for Consultation: hematuria
Medical History
-
Chief Complaint: hematuria
History of Present Illness:
78-year-old male status post PVI 2 days ago presents with hematuria. He had a successful PVI performed January 06, 2024 and overall did well and was discharged on the same day. He went home and over the next 24 hours had difficulty urinating and
urinary retention. He went to see urology today where a Jean Baptiste catheter was placed and he overall did well. He then went home and had marked bladder spasm, abdominal pain, and bright red hematuria. He ultimately presented to the emergency room for
further evaluation. He is felt no further atrial fibrillation. He denies any chest pains or shortness of breath. He was placed on CBI and his abdominal pains have resolved. His urine is now a strawberry color. Denies any fevers or chills. He
did have some dysuria for several days. He denies any orthopnea, PND, or edema
Past Medical History
Past Medical History: Arrhythmias (Paroxysmal atrial fibrillation status post ablation 01/06/24), HTN and Other (BPH)
Past Surgical History: Other (PVI 01/15)
Social History
Tobacco: Former Smoker
Alcohol: Occasional
Drug: None
Personal:
Living: With Family
Employment: Retired
Family History
Family History: Hypertension
Allergies / Home Medications
Allergy/AdvReac Type Severity Reaction Status Date / Time
No Known Allergies Allergy Verified 01/08/24 17:20
�Medication �Instructions �Recorded �Confirmed �Type
apixaban 5 mg tablet (Eliquis) 5 mg DAILY Blood Clot Prevention/Tx 01/06/24 01/08/24 History
metoprolol succinate 25 mg 12.5 mg PO BID Blood Pressure 01/06/24 01/08/24 History
tablet,extended release 24 hr
tamsulosin 0.4 mg capsule 0.8 mg PO DAILY Urinary Issue 01/06/24 01/08/24 History
Review of Systems
-
History Source: Patient
Constitutional: No Symptoms
EENT: No Symptoms
Respiratory: No Symptoms
Cardiac: No Symptoms
Abdomen/GI: Abdominal Pain
: Difficulty Voiding, Bleeding and Dark Urine
Musculoskeletal: No Symptoms
Skin: No Symptoms
Neurological: No Symptoms
Endocrine: No Symptoms
Hematologic/Lymphatic: No Symptoms
Physical Exam
Vital Signs
Temp Pulse Resp BP Pulse Ox
98.7 F 64 16 152/90 97
01/08/24 17:13 01/08/24 20:15 01/08/24 20:15 01/08/24 19:01 01/08/24 20:15
Lab Results
01/08/24 19:00
01/08/24 19:00
Physical Exam
General: Well Developed and Well Nourished
HEENT: Normocephalic and Anicteric
Respiratory: Clear and Non Labored Respirations
Cardiac: S1/S2, Regular Rhythm and Murmur
GI: Soft, Non Distended and Tender (mild diffuse tenderness)
Genito-urinary: Bloody Urine
Musculoskeletal: No Edema
Skin: Warm and Dry
Neuro: AO x 3
Psych: Calm
Impression / Plan
-
Assess:
hematuria s/p urinary retention/jean baptiste placement/BPH
Paroxysmal atrial fibrillation status post PVI 01/06/2024
Anemia
History of hepatitis B
Plan:
He presents with marked hematuria status post PVI 2 days ago. Hemoglobin at 12.4.
Jean Baptiste is now in place with CBI and his urine appears to be clearing. Okay to hold Ericka solomon.
Will reassess in AM.
Continue metoprolol. Check EKG.
Blood pressure stable. Continue Flomax.
Data Reviewed
-
Labs: Labs Reviewed by me
Old Records: Reviewed
[2024-01-08 21:20] VITALS: BP 150/89; BMI 27.4
[2024-01-08 23:00] VITALS: BP 141/87
[2024-01-09 03:00] VITALS: BP 129/82
[2024-01-09 07:00] VITALS: BP 131/91
[2024-01-09 07:35] LABS: Hematocrit 35.3 % (39.0-52.0); Hemoglobin 12.4 g/dL (13.0-18.0); Mean Corp Hgb Conc. 35.1 g/dL (33.0-37.0); Mean Corpuscular Hgb 31.4 pg (27.0-31.0); Mean Corpuscular Volume 89.4 fL (80.0-94.0); Mean Platelet Volume 9.2 fL (7.4-10.4); Platelet Count 180 10^3/uL (130-400); Red Blood Cell Count 3.95 10^6/uL (4.70-6.10); Red Cell Dist. Width 12.4 % (11.5-14.5); White Blood Cell Count 6.5 10^3/uL (4.8-10.8)
[2024-01-09] MEDS: FLOMAX 0.8 MG PO (07:52)
[2024-01-09] MEDS: TOPROL XL 12.5 MG PO ×2 (07:52→21:11)
[2024-01-09] MEDS: PROSCAR 5 MG PO (07:52)
[2024-01-09 07:57] LABS: Blood Urea Nitrogen 14 mg/dl (9-20); Carbon Dioxide 24 mmol/L (22-30); Chloride 107 mmol/L (98-107); Estimated Creatinine Clearance 70 ml/min; Glucose 99 mg/dl (70-99); Potassium 3.9 mmol/L (3.5-5.1); Sodium 138 mmol/L (135-145); eGFR > 60.00
--- NOTE | 2024-01-09 08:10 | W.PN.URO.CBU ---
Today's Communication / Plan
-
continue slow drip cbi while eliquis restarted
Assessment / Plan
-
hx of BPH
AUR after ablation
gross hematuria in setting of bladder decompression with jean baptiste and eliquis
hgb stable- urine now clear
will discuss with cardiology- ok to restart eliquis and observe for hematuria
continue flomax- proscar added
Diagnosis
-
Date of Service: January 09, 2024
-
Patient Diagnosis:
bph
urinary retention
hematuria
Subjective
-
pt comfortable
had 1 episode of blood clot- urine now shilpi on very slow drip cbi
hgb stable
Objective
-
Vital Signs
Temp Pulse Resp BP Pulse Ox
98.8 F 72 16 131/91 96
01/09/24 03:00 01/09/24 07:52 01/09/24 03:00 01/09/24 07:52 01/09/24 03:00
Intake and Output
01/08/24 01/09/24 01/10/24
06:59 06:59 06:59
Intake Total 480 / 480
Output Total -2500 / -2500
Balance 480 / 480 2500 / 2500
Intake:
Oral fluids 480 / 480
Output:
True Urine Output from CBI -2500 / -2500
Laboratory Results
01/09/24 06:03
01/09/24 06:03
Review of Systems
-
Constitutional: No Symptoms
Respiratory: No Symptoms
Cardiac: No Symptoms
Abdomen/GI: No Symptoms
Physical Exam
-
General - no acute distress
Abdomen - soft, non-tender
Genitalia - [address] in [address]
[2024-01-09 11:00] VITALS: BP 126/82
--- NOTE | 2024-01-09 11:50 | W.PN.HOSP.TC ---
Today's Communication/Plan
-
Monitor vital signs
see plan
Monitor hemoglobin
Restart Eliquis when okay with urology and cardiology
Continue CBI
Continue Flomax and Proscar
Assessment / Plan
Assessment / Plan
General: Well Developed, Well Nourished and No Apparent Distress
HEENT: NormoCephalic, Moist mucous membranes and Atraumatic
Respiratory: Clear
Cardiac: S1/S2 and Regular Rhythm; No Murmur or Rub
GI: Soft, Non Tender, Non Distended and Normal Bowel Sounds
Genito-urinary: Continuous Bladder Irrigation
Musculoskeletal: No Edema
Neuro: AO x 3 and Nonfocal/grossly intact
Psych: Calm
Acute urinary retention/gross hematuria
#hxt of BPH
-Chsae in place; on CBI
restart eliquis when ok with cardiology and urology
-Urology following
monitor hgb
-flomax continued
Paroxysmal atrial fibrillation status post ablation 01/05
-Hold Eliquis, restart when okay with cardiology and urology
-metoprolol continued
History of BPH
Follows up with Dr. Wasserman outpatient
Continue with Flomax, Proscar
#DVT prophylaxis
-scd
#CODE status
-full code
Anticipated Discharge: 24 - 48 hours
Subjective/Interval History
-
Date of Service: January 09, 2024
denies pain
Objective Data
-
Labs:
Laboratory Results
01/09/24
06:03
WBC 6.5
Hgb 12.4 L
Hct 35.3 L
Plt Count 180
Sodium 138
Potassium 3.9
Chloride 107
Carbon Dioxide 24
BUN 14
Creatinine 1.0
Glucose 99
Calcium 9.0
Vital Signs:
Vital Signs
Temp Pulse Resp BP Pulse Ox
98.4 F 72 16 131/91 96
01/09/24 07:00 01/09/24 07:52 01/09/24 07:00 01/09/24 07:52 01/09/24 09:25
I&O
01/08/24 01/09/24 01/10/24
06:59 06:59 06:59
Intake Total 480 / 480
Output Total -2500 / -2500
Balance 480 / 480 2500 / 2500
[2024-01-09] MEDS: ELIQUIS 5 MG PO ×2 (12:51→21:12)
--- NOTE | 2024-01-09 14:16 | W.PN.CARDCBS ---
Today's Communication / Plan
-
will resume eliquis
Impression / Plan
-
Assess:
hematuria s/p urinary retention/jean baptiste placement on 01/07, has h/o BPH
Paroxysmal atrial fibrillation status post PVI 01/06/2024
Anemia
History of hepatitis B
Plan:
Discussed with Urology, OK to resume Eliquis today. .
Continue metoprolol. Check EKG.
Blood pressure stable. Continue Flomax.
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
Subjective
Date of Service: January 09, 2024
no cp, sob or palps
Objective
Labs:
01/09/24 06:03
01/09/24 06:03
Labs
Hgb 12.4 g/dL (13.0-18.0) L 01/09/24 06:03
Hct 35.3 % (39.0-52.0) L 01/09/24 06:03
Plt Count 180 10^3/uL (130-400) 01/09/24 06:03
Sodium 138 mmol/L (135-145) 01/09/24 06:03
Potassium 3.9 mmol/L (3.5-5.1) 01/09/24 06:03
BUN 14 mg/dl (9-20) 01/09/24 06:03
Creatinine 1.0 mg/dL (0.7-1.3) 01/09/24 06:03
Glucose 99 mg/dl (70-99) 01/09/24 06:03
Vital Signs and I&O:
Vital Signs
Temp Pulse Resp BP Pulse Ox
98.3 F 72 16 126/82 96
01/09/24 11:00 01/09/24 11:00 01/09/24 11:00 01/09/24 11:00 01/09/24 11:00
Vital Signs
Temp Pulse Resp BP Pulse Ox
98.3 F 72 16 126/82 96
01/09/24 11:00 01/09/24 11:00 01/09/24 11:00 01/09/24 11:00 01/09/24 11:00
Intake & Output
01/07/24 01/08/24 01/09/24 01/10/24
06:59 06:59 06:59 06:59
Intake Total 480 / 480
Output Total -2500 / -2500
Balance 480 / 480 2500 / 2500
Physical Exam
Physical Exam
Well appearing
RRR, Nl S1 and S2, no S3 or S4, 1/6 AHSM, no rubs, nl PMI
Lungs CTA b/l
Abd S/NT/ND/+BS
[2024-01-09 15:00] VITALS: BP 114/74
--- NOTE | 2024-01-09 15:26 | CM ---
Met with pt at bedside
Pt reports he lives with his in a 2 story home. 2 steps to enter, 15 steps to 2nd fl
Independent, drives, active
DME - none
SNF/HH - denies past hx
Has ride home
PCP - Darlene Wagner
Pharm - [facility]
CM will follow for d/c needs
Plan - anticipate home no needs vs w/VN when medically ready
[2024-01-09 20:24] VITALS: BP 128/77
[2024-01-09] MEDS: TYLENOL 1000 MG PO (22:02)
[2024-01-09 23:31] VITALS: BP 121/85
[2024-01-10 01:19] VITALS: BMI 27.4
[2024-01-10 03:26] VITALS: BP 124/67
[2024-01-10 07:00] VITALS: BP 127/77
--- NOTE | 2024-01-10 07:41 | W.PN.URO.CBU ---
Today's Communication / Plan
-
stop cbi
if urine remains clear- ok for discharge on flomax and proscar and call to schedule outpt voiding trial
Assessment / Plan
-
hx of BPH
AUR after ablation
gross hematuria in setting of bladder decompression with jean baptiste and eliquis
hgb stable- urine now clear and has remained so with re-start of eliquis
stop cbi- if urine remains clear could be discharged after lunch today
would continue his usual dose of tamsulosin and add proscar
pt to call dr wooten on thursday to discuss TOV
Diagnosis
-
Date of Service: January 10, 2024
-
Patient Diagnosis:
bph
urinary retention
hematuria
Subjective
-
pt comfortable
received eliquis yesterday
on slow drip cbi- urine yellow
Objective
-
Vital Signs
Temp Pulse Resp BP Pulse Ox
98.6 F 68 15 124/67 97
01/10/24 03:26 01/10/24 03:26 01/10/24 03:26 01/10/24 03:26 01/10/24 03:26
Intake and Output
01/09/24 01/10/24 01/11/24
06:59 06:59 06:59
Intake Total 480 / 480 1680 / 1680
Output Total -320 / -320
Balance 480 / 480 1999 / 1999
Intake:
Oral fluids 480 / 480 1680 / 1680
Output:
True Urine Output from CBI -320 / -320
Review of Systems
-
Constitutional: No Symptoms
Respiratory: No Symptoms
Cardiac: No Symptoms
Abdomen/GI: No Symptoms
Physical Exam
-
General - no acute distress
[2024-01-10] MEDS: PROSCAR 5 MG PO (07:45)
[2024-01-10] MEDS: TOPROL XL 12.5 MG PO (07:45)
[2024-01-10] MEDS: ELIQUIS 5 MG PO (07:45)
[2024-01-10] MEDS: FLOMAX 0.8 MG PO (07:45)
[2024-01-10] MEDS: SENOKOT-S 1 TABLET PO (07:55)
[2024-01-10 07:58] LABS: Hematocrit 35.4 % (39.0-52.0); Hemoglobin 12.6 g/dL (13.0-18.0); Mean Corp Hgb Conc. 35.6 g/dL (33.0-37.0); Mean Corpuscular Hgb 31.6 pg (27.0-31.0); Mean Corpuscular Volume 88.7 fL (80.0-94.0); Mean Platelet Volume 8.9 fL (7.4-10.4); Platelet Count 182 10^3/uL (130-400); Red Blood Cell Count 3.99 10^6/uL (4.70-6.10); Red Cell Dist. Width 12.2 % (11.5-14.5); White Blood Cell Count 5.7 10^3/uL (4.8-10.8)
[2024-01-10 08:34] LABS: Blood Urea Nitrogen 15 mg/dl (9-20); Calcium 9.4 mg/dl (8.4-10.2); Carbon Dioxide 23 mmol/L (22-30); Chloride 107 mmol/L (98-107); Estimated Creatinine Clearance 78 ml/min; Glucose 105 mg/dl (70-99); Potassium 3.9 mmol/L (3.5-5.1); Sodium 139 mmol/L (135-145); eGFR > 60.00
--- NOTE | 2024-01-10 09:58 | W.PN.HOSP.TC ---
Today's Communication/Plan
-
Monitor vital signs
see plan
Continue with Chase on discharge
Follow-up with urology outpatient
Continue Eliquis, metoprolol
Assessment / Plan
Assessment / Plan
General: Well Developed, Well Nourished and No Apparent Distress
HEENT: NormoCephalic, Moist mucous membranes and Atraumatic
Respiratory: Clear
Cardiac: S1/S2 and Regular Rhythm; No Murmur or Rub
GI: Soft, Non Tender, Non Distended and Normal Bowel Sounds
Genito-urinary: Chase
Musculoskeletal: No Edema
Neuro: AO x 3 and Nonfocal/grossly intact
Psych: Calm
Acute urinary retention/gross hematuria
#hxt of BPH
-Chase in place; CBI stopped this morning. Per urology if no bleeding till noon then can be discharged with Chase. Patient will follow-up with Dr. Wasserman outpatient
Eliquis restarted, no further bleeding
-Urology following
monitor hgb
-flomax continued, Proscar added
Paroxysmal atrial fibrillation status post ablation 01/05
Eliquis
-metoprolol continued
History of BPH
Follows up with Dr. Wasserman outpatient
Continue with Flomax, Proscar
#DVT prophylaxis
-scd, Eliquis
#CODE status
-full code
Anticipated Discharge: Today
Subjective/Interval History
-
Date of Service: January 10, 2024
Denies pain
Objective Data
-
Labs:
Laboratory Results
01/10/24
07:24
WBC 5.7
Hgb 12.6 L
Hct 35.4 L
Plt Count 182
Sodium 139
Potassium 3.9
Chloride 107
Carbon Dioxide 23
BUN 15
Creatinine 0.9
Glucose 105 H
Calcium 9.4
Vital Signs:
Vital Signs
Temp Pulse Resp BP Pulse Ox
98 F 67 16 127/77 95
01/10/24 07:00 01/10/24 07:45 01/10/24 07:00 01/10/24 07:45 01/10/24 07:00
I&O
01/09/24 01/10/24 01/11/24
06:59 06:59 06:59
Intake Total 480 / 480 1680 / 1680
Output Total -320 / -320
Balance 480 / 480 1999 / 1999
--- NOTE | 2024-01-10 10:00 | W.DCSUMMARY ---
Discharge Summary
Discharge Data
Date of Admission: 01/08/24
Date of Discharge: 01/10/24
-
Pending Results: No
Hospital Course
78-year-old male with past medical history of BPH, paroxysmal atrial fibrillation status post ablation came to the hospital with acute urinary retention and gross hematuria. Patient was seen by urology who started CBI. Patient hematuria continue
to improve so CBI was later stopped. Since hematuria was improving Eliquis was then restarted. Urology recommended patient to be discharged home with Jean Baptiste. Once patient symptoms continue to improve he was then discharged home with instructions
to follow-up with PCP, cardiology and urology outpatient.
Discharge Plan
-
Patient Disposition: Home (Routine Discharge)
Discharge Diagnosis/Procedures: Acute urinary retention with gross hematuria secondary to BPH
Paroxysmal atrial fibrillation
Diet: As tolerated
Activity: As tolerated
Driving Restrictions: As prior to admission
Bathing Restrictions: None
Activity Restrictions/Additional Instructions:
Please follow-up with your delivery driver assistant outpatient
Referrals:
Darlene Wagner MD [Family Provider] - in less than 1 week
Drew Wasserman MD [Active] - (call to schedule time for jean baptiste removal)
Prescriptions:
New
sennosides-docusate sodium 8.6-50 mg Tablet
1 tab PO BIDPRN PRN (Reason: constipation) Qty: 0 0RF
finasteride 5 mg Tablet
5 mg PO DAILY Qty: 30 0RF
Eliquis 5 mg Tablet
5 mg PO BID Qty: 60 0RF
acetaminophen 325 mg Tablet
650 mg PO Q4HPRN PRN (Reason: mild pain/ALVA/temp> 100.4F) Qty: 0 0RF
Continued
tamsulosin 0.4 mg Capsule
0.8 mg PO DAILY
metoprolol succinate 25 mg Tablet Extended Release 24 Hr
12.5 mg PO BID
Discontinued
Eliquis 5 mg Tablet
5 mg DAILY
Discharge Orders:
Discharge Patient (As Directed); Ordered 01/10/24
Ordered By: David Gardner
Discharge Date and Time
Discharge Date/Time: 01/10/24 12:24
Print Language: SWAZI
--- NOTE | 2024-01-10 10:26 | CM ---
Case management following for discharge planning
Pt for discharge today
To f/u with urology as outpatient
Has ride home with
Discussed IMM
Plan - anticipate home no needs
[2024-01-10 11:00] VITALS: BP 131/79
== END 2024-01-10 12:24 | disposition home or self-care (01) | DRG 726 ==
LOC: 3 WEST ACU 20:36
PROVIDERS: Registered Nurse; ADMITTING PHYSICIAN Internal Medicine; ATTENDING PHYSICIAN Internal Medicine; CONSULT PHYSICIAN Internal Medicine Cardiovascular Disease; CONSULT PHYSICIAN Specialist; EMERGENCY PHYSICIAN Emergency Medicine; FAMILY PHYSICIAN Emergency Medicine
PROC: 3E1K78Z Irrigation of Genitourinary Tract using Irrigating Substance, Via Natural or Artificial Opening (ICD-10-PCS; 2024-01-08)
DX: N40.1 Benign prostatic hyperplasia with lower urinary tract symptoms (principal); D68.32 Hemorrhagic disorder due to extrinsic circulating anticoagulants; R31.0 Gross hematuria; I48.0 Paroxysmal atrial fibrillation; R33.8 Other retention of urine; G47.00 Insomnia, unspecified; N32.89 Other specified disorders of bladder; I10 Essential (primary) hypertension; D64.9 Anemia, unspecified; Z79.01 Long term (current) use of anticoagulants; Z87.891 Personal history of nicotine dependence
CPT/HCPCS: 51702; 80048; 85025; 85027; 99284

== ENCOUNTER → 2024-03-16 11:12 | Outpatient (REF) | payer OTHER, SELFPAY | LOC: HWRAD 11:12 | PROVIDERS: ATTENDING PHYSICIAN Specialist; FAMILY PHYSICIAN Emergency Medicine | DX: R33.8 Other retention of urine (principal) | CPT/HCPCS: 76770 ==

== ENCOUNTER 2024-04-18 17:09 | Emergency (ER) | payer OTHER, SELFPAY ==
[2024-04-18 17:21] VITALS: BP 169/92
--- NOTE | 2024-04-18 17:24 | ED.GENMED ---
ED Provider Triage
<Sarah Barlow NP - Last Filed: 04/18/24 17:34>
-
Patient seen by provider in Triage?: Seen in Triage
Attestation: A medical screening examination has been initiated by a qualified medical provider. Based on the assessment performed at this time, it has been determined that an emergent medical condition may exist and the patient has been informed
that further medical evaluation and possible additional diagnostic testing may be needed.
HPI: 78 yo male w h/o afib (was on Eliquis) here for high BPpost Lazer surgery for prostate at [facility], stopped Tamsulosin, Finesteride prior to surgery, they stopped Eliquis pre surgery, and Metoprolol cut from 25 mg to 12.5 BP has been
'very high.' typically checks BP daily at home and has noted BP has been as high as 160- 180/90 an hour ago.
GENERAL: Alert , in no apparent distress
EYE: No visual abnormalities.
ENT: No visible abnormalities.
LUNGS: No acute respiratory distress
NEUROLOGICAL: Alert and oriented
SKIN: Skin intact. No visible changes.
MUSCULOSKELETAL: Moving extremities normally
PSYCH: Normal and appropriate interaction.
This is a medical evaluation conducted in person to initiate diagnostic evaluation and provide initial therapeutics. Please see further documentation by the treating clinician.
History of Present Illness
<Sarah Barlow RESEARCH AFFILIATE - Last Filed: 04/18/24 17:34>
General
Chief Complaint: Blood Pressure Problem
Time Seen by Provider: 04/18/24 18:29
<Landry Alexander PA-C - Last Filed: 04/18/24 20:42>
History of Present Illness
History of Present Illness:
78-year-old male presents to the emergency department concerned about elevated blood pressure readings after his prostate surgery performed 5 days ago. He notes that Eliquis was discontinued in anticipation of the surgery and is going to be
permanently discontinued due to duration since his A-fib ablation. He also discontinued tamsulosin, finasteride, his metoprolol was decreased to 12.5 mg preoperatively. He has noted blood pressure readings exceeding 180 systolic, does note that he
is taking his blood pressure in excess of 3 times daily. His senior clinical sas programmer advised him to increase his metoprolol to 25 mg but he has not yet done this. Denies chest pain or shortness of breath. Feels well overall. Denies any postoperative pain
Review of Systems
<Landry Alexander PA-C - Last Filed: 04/18/24 20:42>
Review of Systems
Allergies reviewed?: Yes
All Other Systems: ROS reviewed and negative except as documented in HPI and ROS
Phy Exam
<Landry Alexander PA-C - Last Filed: 04/18/24 20:42>
Physical Exam
Physical Exam:
GEN: Well appearing, NAD, WDWN
HEENT: Oral mucosa moist, no scleral icterus
Cardiac: Regular rate and rhythm, no murmurs
Lung: No respiratory distress, no tachypnea, lungs clear to auscultation bilaterally
MSK: No gross deformity or injuries
Skin: Good color, no pallor or jaundice, no rashes
Neuro: AO x3, moves all extremities freely
Psych: Calm, cooperative
Course
<Sarah Barlow, RESEARCH AFFILIATE - Last Filed: 04/18/24 17:34>
Orders/Labs/Results
Orders:
Orders
04/18/24 17:36
Complete Blood Count/With Diff Urgent
Comprehensive Metabolic Panel Urgent
04/18/24 17:36
04/18/24 17:36
Vital Signs
Initial and Last Documented VS:
Initial Vital Signs
Temp Pulse Resp BP Pulse Ox
97.7 F 57 16 169/92 100
04/18/24 17:21 04/18/24 17:21 04/18/24 17:21 04/18/24 17:21 04/18/24 17:21
Last Documented Vital Signs
Temp Pulse Resp BP Pulse Ox
97.7 F 56 17 143/99 99
04/18/24 17:21 04/18/24 19:27 04/18/24 19:27 04/18/24 19:27 04/18/24 19:27
<Landry Alexander PA-C - Last Filed: 04/18/24 20:42>
Orders/Labs/Results
Orders:
Orders
04/18/24 17:36
Complete Blood Count/With Diff Urgent
Comprehensive Metabolic Panel Urgent
04/18/24 17:36
04/18/24 17:36
Vital Signs
Initial and Last Documented VS:
Initial Vital Signs
Temp Pulse Resp BP Pulse Ox
97.7 F 57 16 169/92 100
04/18/24 17:21 04/18/24 17:21 04/18/24 17:21 04/18/24 17:21 04/18/24 17:21
Last Documented Vital Signs
Temp Pulse Resp BP Pulse Ox
97.7 F 56 17 143/99 99
04/18/24 17:21 04/18/24 19:27 04/18/24 19:27 04/18/24 19:27 04/18/24 19:27
<Landry Alexander PA-C - Last Filed: 04/18/24 20:42>
MDM/Problems Addressed
MDM/Problems Addressed:
He is clinically well with normal labs. Blood pressures are only marginally elevated in the emergency department. Recommend he continue with recommendation to increase metoprolol to 25 mg and decrease his frequency of blood pressure assessment at
home, follow-up with PCP as an outpatient.
<Landry Alexander PA-C - Last Filed: 04/18/24 20:42>
*Critical Care Note
Total Time (30-74mins, 75-104mins- exclusive of procedures): Not Applicable
ED Attending Note
<Sarah Barlow, RESEARCH AFFILIATE - Last Filed: 04/18/24 17:34>
-
Portions of this chart may have been created with voice recognition software.� Occasional wrong word or��sound alike� substitutions may have occurred due to the inherent limitations of voice recognition software.
Discharge Plan
Departure
Patient Disposition: Home (Routine Discharge)
Date of Disposition: 04/18/24
Time of Disposition: 19:11
Patient with high blood pressure during this ER visit?: No
Discharge Problem:
Elevated blood pressure reading
Instructions: High Blood Pressure (DC)
Prescriptions:
No Action
tamsulosin 0.4 mg Capsule
0.8 mg PO DAILY
metoprolol succinate 25 mg Tablet Extended Release 24 Hr
12.5 mg PO BID
sennosides-docusate sodium 8.6-50 mg Tablet
1 tab PO BIDPRN PRN (Reason: constipation) Qty: 0 0RF
finasteride 5 mg Tablet
5 mg PO DAILY Qty: 30 0RF
Eliquis 5 mg Tablet
5 mg PO BID Qty: 60 0RF
acetaminophen 325 mg Tablet
650 mg PO Q4HPRN PRN (Reason: mild pain/ALVA/temp> 100.4F) Qty: 0 0RF
Activity Restrictions/Additional Instructions:
Do not take your blood pressure more than 1-2 times per week
Take the 25mg of metoprolol daily as we discussed
Follow up with either your senior clinical sas programmer or primary doctor in 2 weeks for blood pressure recheck
Interventions
Interventions:
*Risk Screen - Suicide Last Done: 04/18/24 17:24
*General Assessment Last Done: 04/18/24 19:29
*Neglect/Abuse Screening Last Done: 04/18/24 17:24
ED- Fall Risk Assessment Last Done: 04/18/24 19:28
*ED COVID-19 Vaccine History Last Done: 04/18/24 19:30
*Nursing Disposition Last Done: 04/18/24 19:29
ED- Cardiac Assessment Last Done: 04/18/24 19:28
ED- Neurological Assessment Last Done: 04/18/24 19:28
ED- Pulmonary Assessment Last Done: 04/18/24 19:28
Discharge Date and Time
Discharge Date/Time: 04/18/24 19:30
Print Language: IRISH
[2024-04-18 17:44] LABS: % Basophils 0.8 % (0-2); % Eosinophils 5.7 % (0-6); % Immature Granulocytes 0.2 % (0-0.5); % Lymphocytes 28.2 % (20.5-51.1); % Monocytes 8.2 % (1.7-9.3); % Neutrophils 56.9 % (42.2-75.2); Absolute Basophils 0.1 10^3/uL (0-0.2); Absolute Eosinophils 0.4 10^3/uL (0-0.7); Absolute Lymphocytes 1.7 10^3/uL (1.2-3.4); Absolute Monocytes 0.5 10^3/uL (0.1-0.6); Absolute Neutrophils 3.5 10^3/uL (1.4-6.5); Hemoglobin 14.6 g/dL (13.0-18.0); Mean Corpuscular Hgb 30.9 pg (27.0-31.0); Mean Corpuscular Volume 90.9 fL (80.0-94.0); Mean Platelet Volume 8.7 fL (7.4-10.4); Nucleated Red Blood Cells % 0 % (-); Platelet Count 195 10^3/uL (130-400); Red Blood Cell Count 4.73 10^6/uL (4.70-6.10); Red Cell Dist. Width 12.1 % (11.5-14.5); White Blood Cell Count 6.1 10^3/uL (4.8-10.8)
[2024-04-18 18:02] LABS: ALT (SGPT) 23 U/L (0-50); AST (SGOT) 25 U/L (17-59); Albumin 4.5 g/dl (3.5-5.0); Alkaline Phosphatase 55 U/L (38-126); Blood Urea Nitrogen 19 mg/dl (9-20); Calcium 9.5 mg/dl (8.4-10.2); Carbon Dioxide 26 mmol/L (22-30); Chloride 104 mmol/L (98-107); Glucose 92 mg/dl (70-99); Potassium 4.5 mmol/L (3.5-5.1); Sodium 142 mmol/L (135-145); Total Bilirubin 0.6 mg/dl (0.2-1.3); eGFR > 60.00
[2024-04-18 19:27] VITALS: BP 143/99
== END 2024-04-18 19:30 | disposition home or self-care (01) ==
LOC: EMR 17:09
PROVIDERS: Registered Nurse; EMERGENCY PHYSICIAN Emergency Medicine; FAMILY PHYSICIAN Emergency Medicine
DX: I10 Essential (primary) hypertension (principal); I48.91 Unspecified atrial fibrillation; Z79.899 Other long term (current) drug therapy; Z98.890 Other specified postprocedural states; Z79.01 Long term (current) use of anticoagulants
CPT/HCPCS: 99283; 80053; 85025

== ENCOUNTER 2024-09-05 07:35 | Day surgery (SDC) | payer OTHER, SELFPAY ==
[2024-09-05] VITALS (12 sets, daily range): BP systolic 92–141; BP diastolic 73–87; BMI 28.4
--- NOTE | 2024-09-05 07:49 | ITS.CL.ABL ---
[employer] Operator - Ablation
Ablation
Procedure Report:
ELECTROPHYSIOLOGIC STUDY AND POSSIBLE ABLATION
DATE: September 05, 2024
Primary Care Provider: Dr Darlene Stevens
Primary Freight Team Associate: Dr Bart Harris
INDICATION:
Symptomatic Atrial Fibrillation.
Paroxysmal
HISTORY: See H and P.
Symptomatic AF, poorly controlled with attempted medical therapy.
He underwent EP study and ablation January 06, 2024 completing PVI as well as posterior wall isolation using the� Pulse Select PFA system.� Approximately 3 months after his ablation he began having recurrences of symptomatic atrial fibrillation.
He continues with symptomatic recurrences (palpitations, ROWE, fatigue).� Outpatient monitoring in July 2024 for 7 days finds a 2.8% burden of atrial fibrillation.
HAS-BLED: 1
Age
CHADSVASc: 2
Age
PRESENTING RHYTHM: SR
HISTORY: See H and P.
Symptomatic AF, poorly controlled with attempted medical therapy.
ANTICOAGULATION: Apixaban 5 mg twice daily
'TIME-OUT': called and confirmed.
SEDATION/ANESTHESIA: provided via the anesthesia department using general anesthesia.
PROCEDURE:
Ultrasound Guidance with real-time visualization of needle insertion and vessel patency performed by hi for femoral venous Vascular Access.
Under real-time US guidance, the needle was advanced with negative pressure into the vein. The needle was seen entering the vessel lumen with a good return of dark red flow, the syringe was removed, non-pulsatile, dark red blood low was noted and
the wire was passed without difficulty, then the needle was removed. US confirmed the wire was in the vein, not going into an artery,
Images were taken and saved for the patient's permanent record. Imaging findings typical femoral venous anatomy. Direct visualization of needle puncture into the femoral vein was observed and recorded.
A decapolar CS catheter was placed within the CS for mapping and pacing.
The intracardiac ultrasound catheter was positioned in the RA for continuous intracardiac ultrasound imaging.
Heparin bolus and infusion to target ACT at 300 -350 seconds was administered. Transseptal puncture was performed. This entailed advancing a sheath with dilator into the superior vena cava and withdrawing both (monitoring intracardiac ultrasound,
fluoroscopy and tip pressure) with the tip oriented toward the atrial septum. The fossa ovalis was engaged (indicated by sudden displacement of the sheath tip as well as tenting of the fossa seen on intracardiac ultrasound).
The [employer] transseptal system was used. Left atrial catheter position was confirmed by echocardiographic imaging and fluoroscopy followed by RF delivery using the Proenza Schouer system resulting in successful LA access with pressure monitoring
demonstrating LA pressure waveforms (LA mean pressure 11 mm Hg). The sheath was advanced over the dilator and positioned in the left atrium.
The [employer] Grid multipolar mapping catheter was initially positioned through the transseptal sheath for high density mapping.
Geometry and voltage mapping was performed using the [employer] multipolar grid catheter. Ensite-X was utilized for three-dimensional electroanatomical mapping.
A 3-D map was created using Ensite-X in Voxel mode. A 3-D reconstructed CT image was compared to the 3-D Navex map to assist in anatomic evaluation, mapping and ablation.
High dense electroanatomical mapping finds reconnection at the left superior pulmonary vein at its salvatore and also at its posterior superior quadrant. Additionally there is reconnection at the right superior pulmonary vein anteriorly and at the
left inferior pulmonary vein towards its septal quadrant. There is also a lack of complete posterior wall electrical isolation with ' ingrowth ' of voltage at the dome of the left atrium posteriorly towards the antrum of the left superior pulmonary
vein and also the floor of the posterior wall of the left atrium midline.
The [employer] catheter and system was used for cardiac ablation. Catheter positioning was guided and confirmed using both I.C.E. and fluoroscopy.
First PV ostial reisolation was accomplished and then additional energy applications/additional ablation set was required to accomplish wide area circumferential ablation around each of the pulmonary vein sets and additionally ablation to accomplish
LA posterior wall ablation.
Remapping with the Garcia multipolar grid catheter found that all PVPs were eliminated at each vein demonstrating entrance block. Also pacing from the multipolar mapping catheter around the the circumference of the ostia was performed at 10 ma and
2.0 msec output to assess for exit block. This demonstrated electrical isolation at each of the pulmonary vein ostia (LSPV, LIPV, RSPV, RIPV). There is also entrance and exit block at the LA posterior wall.
Programmed electrostimulation which included burst atrial pacing as well as the delivery of atrial decremental extrastimuli down to atrial ERP failed to induce any sustained arrhythmias.
I.C.E. :
Pre-Ablation Post-Ablation
LVEF: 55 % 55 %
WMA: none none
Pericardial effusion: none none
COMPLICATIONS:
none
SUMMARY:
- Mapping and ablation to isolate the PVs
- Additional AF ablation set after PVI.
- 3-D Electroanatomical Mapping
- Intracardiac Ultrasound
- Ultrasound guidance for vascular access
Post ablation, I discussed today's findings and results with the patient's , Dina Craig.
RECOMMENDATIONS:
- Observe in monitored bed.
- Maintain oral anticoagulation.
- Office visit with Dr Harris has been arranged for 12/01/24
Copy to:
Dr Darlene Stevens
Dr Bart Harris
[2024-09-05] MEDS: NSS 500 IV (08:51)
[2024-09-05 11:25] LABS: ACT-LR - POC 340 Seconds (116-155)
[2024-09-05 11:41] LABS: ACT-LR - POC 248 Seconds (116-155)
[2024-09-05] MEDS: TYLENOL 650 MG PO (12:19)
--- NOTE | 2024-09-05 16:24 | W.PN.UPDATE ---
Update Note
Progress Note Update
Pt post PFA. Right groin site without ht/bleeding. OOB ambulating, urinating without difficulty. Post EKG NSR 60s, no acute changes. Resume eliquis tonight at usual time. Followup with Dr. Harris as scheduled. Home today if groin site/tele remain
stable.
== END 2024-09-05 16:50 | disposition home or self-care (01) ==
LOC: CATH 07:35
PROVIDERS: ATTENDING PHYSICIAN Internal Medicine Cardiovascular Disease; FAMILY PHYSICIAN Internal Medicine; OTHER PHYSICIAN Nuclear Medicine Nuclear Cardiology
DX: I48.91 Unspecified atrial fibrillation (principal); Z79.01 Long term (current) use of anticoagulants; I45.10 Unspecified right bundle-branch block; Z98.890 Other specified postprocedural states; Z79.899 Other long term (current) drug therapy
CPT/HCPCS: C1732; C1894; C1769; C1730; C1892; C1759; 85347; 86850; 86900; 86901; 93005; 93656; 93657; C1733; C1766

== ENCOUNTER → 2024-10-27 11:26 | Outpatient (REF) | payer OTHER, SELFPAY | LOC: HWRAD 11:26 | PROVIDERS: ATTENDING PHYSICIAN Specialist; FAMILY PHYSICIAN Internal Medicine | DX: N40.1 Benign prostatic hyperplasia with lower urinary tract symptoms (principal); N20.0 Calculus of kidney | CPT/HCPCS: 74018 ==

== ENCOUNTER → 2024-12-02 12:00 | Outpatient (REF) | payer OTHER, SELFPAY | LOC: DHSLP 12:00 | PROVIDERS: ATTENDING PHYSICIAN Internal Medicine | DX: G47.30 Sleep apnea, unspecified (principal); R06.83 Snoring | CPT/HCPCS: 95800 ==

== ENCOUNTER → 2024-12-09 11:03 | Outpatient (REF) | payer OTHER, SELFPAY | LOC: RAD 11:03 | PROVIDERS: ATTENDING PHYSICIAN Nuclear Medicine Nuclear Cardiology; FAMILY PHYSICIAN Internal Medicine | DX: I71.20 Thoracic aortic aneurysm, without rupture, unspecified (principal) | CPT/HCPCS: 71275; Q9967 ==

== ENCOUNTER → 2024-12-15 08:40 | Outpatient (REF) | payer OTHER, SELFPAY | LOC: RCS 08:40 | PROVIDERS: ATTENDING PHYSICIAN Nuclear Medicine Nuclear Cardiology; FAMILY PHYSICIAN Internal Medicine | DX: I48.0 Paroxysmal atrial fibrillation (principal); R94.39 Abnormal result of other cardiovascular function study; I71.20 Thoracic aortic aneurysm, without rupture, unspecified | CPT/HCPCS: 93017; 93350 ==

== ENCOUNTER → 2025-01-10 08:07 | Outpatient (REF) | payer OTHER, SELFPAY | LOC: RAD 08:07 | PROVIDERS: ATTENDING PHYSICIAN Internal Medicine | DX: M85.88 Other specified disorders of bone density and structure, other site (principal); R10.11 Right upper quadrant pain | CPT/HCPCS: 76700; 77080 ==